=== PATIENT | female | born 1940 | race Caucasian/White ===

== ENCOUNTER → 2016-03-05 | Outpatient (CLI) | payer MEDICARE, BC ==
[~2016-03-05] MED LIST: AZIT250T81 PO; ESTR25PO PO; FEXO1TAB40 PO; FLX20C PO; LEVO50TA6 PO; MECL12.518 PO; ONDA4TAB8 PO; PRAV40TA2; PRED20TA PO; SULI200T8 PO
[2016-03-05 17:54] VITALS: BP 111/72
--- NOTE | 2016-03-05 17:54 | Urgent Care T Sheet Gen (E) ---
Intake General Temperature (Fahrenheit): 99.0 Pulse: 98 Blood Pressure Systolic: 111 Blood Pressure Diastolic: 72 Respirations: 20 SPO2: 97 Description of Symptoms Patient presents with illness x 1 week. Notes nasal congestion and headache as well as cough. Has history of MS and she states the URI is affecting that. Feels feverish. Been taking Mucinex without improvement. Notes worse headache along the frontal sinuses. History of Present Illness Allergies: Coded Allergies: No Known Drug Allergies (Unverified , 07/24/15) Home Meds Active Scripts Ondansetron (Zofran ODT)4 Mg Tab.rapdis4 Mg PO Q6H PRN NAUSEA/VOMITING #10 TAB Ref 0 Prov:MARTÍN LIMON MD 07/24/15 Meclizine HCl 12.5 Mg Rqkyss66.5 Mg PO QID PRN DIZZINESS #30 TAB Ref 0 Prov:MARTÍN LIMON MD 07/24/15 Reported Medications Sulindac 200 Mg [id number] Mg PO DAILY #100 07/24/15 Fexofenadine/Pseudoephedrine (Delores-D 12 Hour Tablet)1 Each Tab.er.12h1 Each PO DAILY #60 07/24/15 Levothyroxine Sodium 50 Mcg Dhwbob85 Mcg PO DAILY #90 07/24/15 Estriol Micronized 1 Gm Powder1 Gm PO DAILY #30 07/24/15 Fluoxetine 20 Mg Zxtwxos29 Mg PO DAILY #30 07/24/15 Pravastatin Sodium 40 Mg Wdrrzc60 Daily #30 07/24/15 Respiratory Constitutional Symptoms: Fever Malaise EENTM: Nose Congestion Respiratory: Cough Cardiovascular: No symptoms reported Neurological: Headache All Other Systems Reviewed Remaining Systems: All other systems reviewed with negative findings Past Vbbfstq-Fedgzl-Dqbtkf Hx Patient's Social History Alcohol Use: Denies Use Smoking Status: Never smoker Recent foreign travel: No Respiratory Respiratory History: None Cardiovascular Cardiovascular History: None 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 tender over frontal sinuses.) Neck Exam: SuppleNo Lymphadenopathy Respiratory Exam: Lungs clear (coughed throughout exam.) Normal breath sounds Cardiovascular Exam: Regular rate, rhythm Departure Urgent Care Impression Impression: Primary Impression: Sinusitis Qualified Code: J01.10 - Acute frontal sinusitis, unspecified Departure Disposition: 01 HOME OR SELF-CARE Condition: Stable Additional Instructions: I have called the following to Pharmacy: Augmentin 875mg BID x 7 days. Medrol dose pack, use as directed. I have also prescribed Robitussin AC 10ml po qhs prn cough #100ml DC Mucinex Rest. Fluids Her last MS infusion was last week. Return as needed or f/u with PCP. Patient understands DC instructions. All questions were answered. End of report . EMILEE MADDOX Mar 05, 2016 17:54
== END ==
LOC: MHUC 16:59
PROVIDERS: ATTEND Physician Assistant
DX: J01.10 Acute frontal sinusitis, unspecified (principal)
CPT/HCPCS: 99213

== ENCOUNTER → 2016-03-26 | Outpatient (CLI) | payer MEDICARE, BC ==
[2016-03-26 12:55] VITALS: BP 134/73
== END ==
LOC: MHUC 12:35
PROVIDERS: ATTEND Physician Assistant
DX: R05 Cough (principal)
CPT/HCPCS: 99213